=== PATIENT | male | born 1965 | race Caucasian/White ===

== ENCOUNTER 2016-09-30 19:15 | Emergency (ER) | payer OTHER ==
[~2016-09-30] VITALS: Ht 185.4 cm; Wt 118.0 kg
[2016-09-30 19:17] VITALS: BP 161/92; PULSE 92; RESP 16; TEMP 98.6; O2SAT 97
--- NOTE | 2016-09-30 19:45 | PD ---
HPI Chief Complaint: Injury Time Seen by Provider: 19:42 Travel History International Travel<30 days: No Contact w/Intl Traveler<30days: No Traveled to known affect area: No History of Present Illness HPI 51-year-old white male presents to emergency Department with complaints of right ankle pain he states that he is walking prior to arrival and he felt a pop in his right ankle. Since then he's had significant pain and decreased ability to bear weight. This is an ankle that he had a sprain in approximately 5 months ago. He did not have any direct trauma. No numbness, tingling or weakness. PFSH Past Medical History Medical History: Denies Significant Hx Diminished Hearing: No Tetanus Vaccination: < 5 Years Influenza Vaccination: Yes Past Surgical History Surgical History: No Previous Surgery Social History Alcohol Use: Yes (X1 DRINK DAILY) Tobacco Use: No Substance Use: No Allergies-Medications (Allergen,Severity, Reaction): Coded Allergies: No Known Allergies (Unverified , 09/30/16) Reported Meds & Prescriptions Reported Meds & Active Scripts Active No Active Prescriptions or Reported Medications Review of Systems Except as stated in HPI: all other systems reviewed are Neg Musculoskeletal: Positive: Arthralgias, Limited ROM, Edema, Pain, No: Myalgias , Weakness, Cramping Physical Exam Narrative GENERAL: This is a well-nourished, well-developed patient, in no apparent distress. SKIN: No rashes, ecchymoses or lesions. Warm and dry. HEAD: Atraumatic. Normocephalic. EYES: PERRL, EOMI, no discharge or injection. No scleral icterus. EARS: Clear NOSE: Nasal turbinates appear normal. THROAT: Mucosa pink and moist. Airway patent. NECK: Trachea midline. supple, moves head freely. LUNGS: Clear to auscultation. CV: Regular in rhythm. ABDOMEN: Soft nontender. EXT: No clubbing cyanosis or edema.. Examination the right lower extremity reveals tenderness and swelling over the lateral malleolus. The skin is intact. No pain in the heel, Achilles, mediolateral malleolus, or distal forefoot. No pain in the toes. He has good dorsalis pedis pulse and sensation. Data Data Last Documented VS Vital Signs Date Time Temp Pulse Resp B/P Pulse Ox O2 Delivery O2 Flow Rate FiO2 09/30/16 19:34 16 09/30/16 19:17 98.6 92 161/92 97 Room Air Orders Ankle, Complete ([id number]) (09/30/16 19:41) Ice/Cold Pack (09/30/16 19:41) MDM Medical Decision Making Medical Screen Exam Complete: Yes Emergency Medical Condition: Yes Medical Record Reviewed: Yes Interpretation(s) Right ankle: Positive soft tissue swelling but no obvious fracture. There is a density in the lateral foot below the lateral malleolus etiology is unclear. This could be a old foreign body. I do not believe that this is a fracture. Differential Diagnosis MDM: High Differential diagnoses: Fracture, sprain, strain, dislocation, contusion, neurovascular injury Narrative Course Patient is given Familia wrap, ice pack. He has his own crutches. Diagnosis Primary Impression: Right ankle sprain Qualified Code: S93.421A - Sprain of deltoid ligament of right ankle, initial encounter Patient Instructions: General Instructions Departure Forms: Tests/Procedures, Work Release Special Instructions: No work 3 days. Additional Instructions: Rest. Elevation. Ice packs for the next 3 days. Familia wrap and crutches. No weight-bearing and then progress to weight-bearing as tolerated. Medications as directed Follow-up with an orthopedist or your doctor in one week. Return to the ER if any problems Med/Other Pt SpecificInfo: Prescription(s) given Scripts No Active Prescriptions or Reported Meds Disposition: 01 DISCHARGE HOME Condition: Stable Renato Hinson September 30, 2016 19:45
[2016-09-30] MEDS ORDERED: DICL75TA PO (20:26)
--- NOTE | 2016-09-30 20:34 | RADRPT ---
EXAM DATE/TIME: 09/30/2016 20:16 [facility] COMPARISON: No previous studies available for comparison. INDICATIONS : Right ankle pain, no known injury, heard pop today. MEDICAL HISTORY : None. SURGICAL HISTORY : None. ENCOUNTER: Initial ACUITY: 1 day PAIN SCORE: 7/10 LOCATION: Right lateral ankle. FINDINGS: Three view exam was performed of the right ankle. The bony structures are in normal alignment. No e vidence of fracture, dislocation, or soft tissue swelling. The ankle mortise is intact. No radiopaq ue foreign bodies are seen. Bony mineralization is normal. CONCLUSION: Unremarkable examination of the right ankle. Ronen Chou Jr., MD on September 30, 2016 at 20:32 Board Certified Radiologist. This report was verified electronically.
== END 2016-09-30 20:50 | disposition home or self-care (01) ==
LOC: NEPK 19:15
DX: S93.421A Sprain of deltoid ligament of right ankle, initial encounter (principal); X58.XXXA Exposure to other specified factors, initial encounter; Y93.01 Activity, walking, marching and hiking
CPT/HCPCS: 73610; 99283; E0113